=== PATIENT | female | born 1990 | race Caucasian/White ===

== ENCOUNTER 2022-04-04 12:45 | Emergency (ER) | payer SELFPAY ==
[~2022-04-04] VITALS: Ht 160 cm; Wt 68.0 kg
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
[2022-04-04 14:25] LABS: HCG,QUALITATIVE URINE NEGATIVE (NEGATIVE)
[2022-04-04 14:39] LABS: AMPHETAMINE SCREEN, URINE POSITIVE (NEGATIVE); BARBITURATE SCREEN URINE NEGATIVE (NEGATIVE); BENZODIAZEPINES SCREEN URINE NEGATIVE (NEGATIVE); CANNABINOID SCREEN, URINE POSITIVE (NEGATIVE); COCAINE SCREEN URINE NEGATIVE (NEGATIVE); METHADONE STAT NEGATIVE (NEGATIVE); OPIATE SCREEN URINE NEGATIVE (NEGATIVE); OXYCODONE STAT NEGATIVE (NEGATIVE); PROPOXYPHENE STAT NEGATIVE (NEGATIVE); TRICYCLIC ANTIDEPRESSANTS SCRE NEGATIVE (NEGATIVE)
[2022-04-04 15:11] LABS: BASOPHILS % (AUTO) 0 % (0-10); EOSINOPHILS # (AUTO) 0.1 10^3/uL (0.0-0.3); EOSINOPHILS % (AUTO) 1 % (0-10); HEMATOCRIT 38 % (35-52); HEMOGLOBIN 12.9 g/dL (11.5-16.0); LYMPHOCYTES # (AUTO) 2.1 10^3/uL (1.0-4.0); LYMPHOCYTES % (AUTO) 14 % (12-44); MEAN CORPUSCULAR HEMOGLOBIN 32 pg (25-34); MEAN CORPUSCULAR HGB CONC 34 g/dL (32-36); MEAN CORPUSCULAR VOLUME 96 fL (80-99); MEAN PLATELET VOLUME 9.8 fL (9.0-12.2); MONOCYTES % (AUTO) 7 % (0-12); NEUTROPHILS # (AUTO) 11.5 10^3/uL (1.8-7.8); NEUTROPHILS % (AUTO) 78 % (42-75); PLATELET COUNT 224 10^3/uL (130-400); WHITE BLOOD COUNT 14.8 10^3/uL (4.3-11.0)
[2022-04-04 15:34] LABS: ALBUMIN 4.5 GM/DL (3.2-4.5); POTASSIUM 3.6 MMOL/L (3.6-5.0)
[2022-04-04 15:35] LABS: CALCIUM 8.7 MG/DL (8.5-10.1)
[2022-04-04 15:38] LABS: BILIRUBIN,TOTAL 0.4 MG/DL (0.1-1.0)
[2022-04-04 15:40] LABS: CREATININE SERUM 0.7 MG/DL (0.60-1.30)
[2022-04-04 15:43] LABS: LYMPHOCYTES % (MANUAL) 25 %; MONOCYTES % (MANUAL) 3 %; NEUTROPHILS % (MANUAL) 72 %; RBC MORPH NORMAL
[2022-04-04 16:09] VITALS: BP 115/90
== END 2022-04-04 16:09 | disposition home or self-care (01) ==
LOC: ER 12:48
DX: S01.111A Laceration without foreign body of right eyelid and periocular area, initial encounter (principal); G40.909 Epilepsy, unspecified, not intractable, without status epilepticus; F15.90 Other stimulant use, unspecified, uncomplicated; F17.210 Nicotine dependence, cigarettes, uncomplicated; W22.8XXA Striking against or struck by other objects, initial encounter
CPT/HCPCS: 36410; 76937; 80053; 80306; 82947; 84703 ×2; 85007; 85027; 93005; 99283; C1751; 36415